=== PATIENT | female | born 1955 ===

== ENCOUNTER 2019-12-07 06:10 | Day surgery (SDC) | payer MEDICARE, OTHER ==
[~2019-12-07] VITALS: Ht 157.5 cm; Wt 124.7 kg
[2019-12-07] MEDS ORDERED: Robaxin750 MG PO (06:35)
[2019-12-07] MEDS ORDERED: AMLO10 PO (06:36)
[2019-12-07] MEDS ORDERED: METF500 PO (06:36)
[2019-12-07] MEDS ORDERED: ATOR20 PO (06:38)
[2019-12-07] MEDS ORDERED: FURO20 PO (06:38)
[2019-12-07] MEDS ORDERED: ATEN50 PO (06:41)
[2019-12-07] MEDS ORDERED: LEVSOD50 PO (06:41)
[2019-12-07] MEDS ORDERED: PIOG15 PO (06:42)
[2019-12-07] MEDS ORDERED: ENAL5 PO (06:42)
[2019-12-07] MEDS ORDERED: OMEP20ER PO (06:44)
[2019-12-07] MEDS ORDERED: PRAM.5 PO (06:44)
[2019-12-07] MEDS ORDERED: TRAM50 PO (06:44)
== END 2019-12-07 08:20 | disposition home or self-care (01) ==
LOC: ORSCSDS 06:10
PROVIDERS: Ophthalmology
PROC: 08RJ3JZ Replacement of Right Lens with Synthetic Substitute, Percutaneous Approach (ICD-10-PCS; principal; 2019-12-07 07:30)
DX: H25.11 Age-related nuclear cataract, right eye (principal); I10 Essential (primary) hypertension; E11.9 Type 2 diabetes mellitus without complications; E78.5 Hyperlipidemia, unspecified; E66.01 Morbid (severe) obesity due to excess calories; Z68.43 Body mass index [BMI] 50.0-59.9, adult; Z79.84 Long term (current) use of oral hypoglycemic drugs; Z79.899 Other long term (current) drug therapy; E03.9 Hypothyroidism, unspecified
CPT/HCPCS: 82947; J2001; J2250; J3010; J3301; J7040; V2632